=== PATIENT | male | born 1970 | race Hispanic/Latino ===

== ENCOUNTER 2024-09-30 12:33 | Emergency (ER) | payer SELFPAY ==
[~2024-09-30] VITALS: Ht 165.1 cm; Wt 113.4 kg
[~2024-09-30 12:33] MED LIST: ACET1TAB12 PO
[2024-09-30 13:17] LABS: BASOPHILS # (AUTO) 0.05 K/uL (0.00-0.20); BASOPHILS % (AUTO) 0.6 % (0.0-5.0); EOSINOPHILS # (AUTO) 0.25 K/uL (0.00-0.70); HEMATOCRIT 39.5 % (42-54); IMMATURE GRANULOCYTE ABSOLUTE 0.04 K/uL (0-1); LYMPHOCYTES # (AUTO) 2.1 K/uL (1.0-4.8); LYMPHOCYTES % (AUTO) 24.7 % (21.0-51.0); MEAN CORPUSCULAR HEMOGLOBIN 29.7 pg (27.0-33.0); MEAN CORPUSCULAR HGB CONC 33.4 g/dL (32.0-36.0); MONOCYTES # (AUTO) 0.7 K/uL (0.1-1.0); MONOCYTES % (AUTO) 7.9 % (3.0-13.0); NEUTROPHILS # (AUTO) 5.3 K/uL (1.8-7.7); NEUTROPHILS % (AUTO) 63.3 % (40.0-77.0); PLATELET COUNT (AUTO) 263 K/uL (130-400); RED BLOOD CELL COUNT(AUTO) 4.44 MIL/uL (4.50-6.20); WHITE BLOOD COUNT (AUTO) 8.4 K/uL (4.8-10.8)
[2024-09-30 13:29] LABS: CREATININE 0.8 mg/dL (0.5-1.3); POTASSIUM 3.7 mmol/L (3.5-5.1)
[2024-09-30] MEDS ORDERED: IOHEXOL-350 50ML VIAL IV ONE (13:55)
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
--- NOTE | 2024-09-30 14:11 | NUR ---
CT CALLED IN REFERENCE TO PT AND HIS CT MAXILLOFACIAL EXAM. STANLEY WILL SPEAK TO THE [employer] AND [employer]GETABLE CLASSER
--- NOTE | 2024-09-30 14:37 | HMCIMG ---
CT MAXILLOFACIAL W/CONTRAST HISTORY: Status post so COMPARISON: None TECHNIQUE: Multiple sequential high-resolution axial images of the paranasal sinuses were obtained. Postprocessing sagittal and coronal reconstruction images were also obtained. Patient was given 50 cc of Omnipaquethrough intravenous route. FINDINGS: Nasal septum is grossly midline. There is no evidence of mucoperiosteal thickening involving the paranasal sinuses. The infundibula are patent bilaterally. No acute displaced fracture is seen. There is no evidence of air-fluid level in the paranasal sinuses. Parapharyngeal fat planes are preserved bilaterally. No abnormal enhancement is seen. Right cheek soft tissue swelling is seen. IMPRESSION: 1. No acute displaced fracture is seen. CT was performed with one or more following dose reduction techniques: automated exposure control, adjustment of the mA and kv according to patient's size, or use of a iterative reconstruction technique.
[2024-09-30] MEDS: INSULIN humuLIN R 100 UNIT/ML 3ML SQ STA (14:53)
[2024-09-30 15:13] VITALS: BP 144/78; PULSE 89; RESP 18; TEMP 98.7; O2SAT 96
--- NOTE | 2024-09-30 15:14 | NUR ---
PT AAOX4 STABLE NO DISTRESS, STATES IS LESS NOW, HE FEELS READY FOR HOME. PT AND AT BEDSIDE GIVEN INSTRUCTIONS FOR DISCHARGE HOME BOTH VERBALIED UNDERSTANDING, PT IV REMOVED CATHETER INTACT, PT TAKEN IN W/C TO HIS CAR, DRIVEN HOME BY .
== END 2024-09-30 15:20 | disposition home or self-care (01) ==
LOC: EDH 12:33
DX: S00.83XA Contusion of other part of head, initial encounter (principal); E66.9 Obesity, unspecified; Z79.899 Other long term (current) drug therapy; Y04.0XXA Assault by unarmed brawl or fight, initial encounter; Y93.89 Activity, other specified; Y92.89 Other specified places as the place of occurrence of the external cause; Y99.8 Other external cause status
CPT/HCPCS: 99285; 70487; 80048; 85025; 82948; 36415; 96372; J1815; Q9967